=== PATIENT | female | born 2000 | race Caucasian/White ===

== ENCOUNTER 2021-09-15 22:59 | Emergency (ER) | payer OTHER ==
[2021-09-15 23:26] LABS: BASOPHILS # (AUTO) 0.1 10^3/uL (0.0-0.1); BASOPHILS % (AUTO) 0.7 %; EOSINOPHILS # (AUTO) 0.2 10^3/uL (0.0-0.7); EOSINOPHILS % (AUTO) 1.8 %; HGB - HEMOGLOBIN 12.5 g/dL (12.0-16.0); LYMPHOCYTES # (AUTO) 2.2 10^3/uL (1.5-3.5); LYMPHOCYTES % (AUTO) 22.4 %; MEAN CORPUSCULAR HEMOGLOBIN 31.9 pg (27.0-31.0); MEAN CORPUSCULAR HGB CONC 33.8 g/dL (32.0-36.0); MEAN CORPUSCULAR VOLUME 94.4 fL (81.0-99.0); MEAN PLATELET VOLUME 11.2 fL (7.9-10.8); MONOCYTES % (AUTO) 9.6 %; NEUTROPHILS # (AUTO) 6.5 10^3/uL (1.5-6.6); NEUTROPHILS % (AUTO) 65.2 %; PLT - PLATELET COUNT 217 10^3/uL (130-450); RED BLOOD COUNT 3.92 10^6/uL (4.20-5.40); RED CELL DISTRIBUTION WIDTH 12.3 % (12.0-15.0)
[2021-09-15 23:29] LABS: BILIRUBIN,URINE NEGATIVE (NEGATIVE); GLUCOSE, URINE (UA) NEGATIVE (NEGATIVE); KETONES,URINE (UA) NEGATIVE (NEGATIVE); LEUKOCYTE ESTERASE, URINE NEGATIVE (NEGATIVE); NITRITE,URINE NEGATIVE (NEGATIVE); OCCULT BLOOD,URINE NEGATIVE (NEGATIVE); PROTEIN,URINE NEGATIVE (NEGATIVE); UROBILINOGEN,URINE 0.2 (NORMAL) E.U./dL (NORMAL)
[2021-09-15 23:32] LABS: CLARITY,URINE CLEAR (CLEAR); HCG UR QUAL NEGATIVE
[2021-09-15 23:45] LABS: ALBUMIN 4.3 g/dL (3.2-5.5); ALBUMIN/GLOBULIN RATIO 1.6 (1.0-2.2); BILIRUBIN,TOTAL 0.5 mg/dL (0.2-1.0); CALCIUM 9.5 mg/dL (8.5-10.3); CREATININE 0.8 mg/dL (0.4-1.0); POTASSIUM 3.9 mmol/L (3.5-5.0)
--- NOTE | 2021-09-15 23:47 | ED Physician Documentation ---
PD HPI ABD PAIN - Stated complaint Stated Complaint: UPPER ADMIN PAIN/SORE THROAT - Chief complaint Chief Complaint: Abd Pain - History obtained from History obtained from: Patient - History of Present Illness Timing - onset: How many days ago (4) Timing - details: Abrupt onset, Constant, Waxing and waning Pain level now: 10 Quality: Cramping Location: RUQ, Epigastric Improved by: Laying still Worsened by: Palpation Associated symptoms: Nausea, Vomiting, Diarrhea. No: Fever Similar symptoms before: Diagnosis (pancreatitis) Recently seen: Not recently seen - Additional information Additional information: patients stated chief complaint is pancreatic flare up (per patient). She says she has h/o episodes of pancreatitis over past 5 years . she c/o LUQ and epigastric pain x 4 days, cramping and with diarrhea. 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 She does not live on [facility]. She says she had only a few beers during the trip to [place]. Regarding her pancreatitis, she says no cause had been found and that she was advised to have a test performed which, by her description of what it entails, sounds likely to be MRCP. She says this was advised a few years ago but she has not yet had it performed. Review of Systems Constitutional: reports: Reviewed and negative Cardiac: reports: Reviewed and negative Respiratory: reports: Reviewed and negative GI: reports: Abdominal Pain, Nausea, Vomiting, Diarrhea. 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, Other : Kidney stones Other Past Medical History: PCOS - Past Surgical History Past Surgical History: Yes General: Appendectomy HEENT: Tonsil/Adenoidectomy, Other - Present Medications Home Medications: Ambulatory Orders Medication Instructions Recorded Confirmed HYDROcod/ACETAM 5/325 [[place] 5/325] 1 ea PO Q6H PRN #15 tablet 09/16/21 Pantoprazole [Protonix] 40 mg PO DAILY 30 Days #30 tablet 09/16/21 Promethazine [Phenergan] 25 mg PO Q6H PRN #20 tab 09/16/21 - Allergies Allergies/Adverse Reactions: Allergies Allergy/AdvReac Type Severity Reaction Status Date / Time diphenhydramine AdvReac Rash Verified 09/15/21 23:11 [From Benadryl] - Social History Does the pt smoke?: No Smoking Status: Never smoker Does the pt drink ETOH?: No Substance Use and Type: Marijuana - Immunizations Immunizations are current?: Yes PD ED PE NORMAL - Vitals Vital signs reviewed: Yes - General General: Alert and oriented X 3, Well developed/nourished, Other (appears anxious and uncomfortable due to pain) - HEENT HEENT: Moist mucous membranes - Neck Neck: Supple, no meningeal sign - Cardiac Cardiac: RRR, No murmur - Respiratory Respiratory: No respiratory distress, Clear bilaterally - Abdomen Abdomen: Soft, Non distended, Other (TTP across upper abdomen, epigastrium=LUQ<RUQ) - Back Back: No CVA TTP - Extremities Extremities: No edema PD ED PE EXPANDED - Psych Psych: Tearful, Anxious Results - Vitals Vitals: Vital Signs - 24 hr 09/15/21 09/15/21 09/16/21 23:11 23:16 01:16 Temperature 36.5 C 36.5 C Heart Rate 66 66 62 Respiratory 16 16 15 Rate Blood Pressure 115/80 115/80 111/80 O2 Saturation 100 100 98 09/16/21 09/16/21 09/16/21 01:42 03:00 05:00 Temperature Heart Rate 61 70 Respiratory 17 19 15 Rate Blood Pressure 108/79 105/70 O2 Saturation 99 95 09/16/21 09/16/21 09/16/21 07:47 08:53 09:41 Temperature 37.0 C Heart Rate 108 H 62 78 Respiratory 18 18 18 Rate Blood Pressure 122/92 H 122/80 O2 Saturation 96 100 100 Oxygen O2 Source Room air - Labs Labs: Laboratory Tests 09/15/21 09/15/21 09/15/21 23:00 23:00 23:08 WBC 10.0 RBC 3.92 L Hgb 12.5 Hct 37.0 MCV 94.4 MCH 31.9 H MCHC 33.8 RDW 12.3 Plt Count 217 MPV 11.2 H Neut # (Auto) 6.5 Lymph # (Auto) 2.2 [place] # (Auto) 1.0 Eos # (Auto) 0.2 Baso # (Auto) 0.1 Absolute Nucleated RBC 0.00 Nucleated RBC % 0.0 Sodium 137 Potassium 3.9 Chloride 103 Carbon Dioxide 24 Anion Gap 10.0 BUN 10 Creatinine 0.8 Estimated GFR (MDRD) 91 Glucose 97 Calcium 9.5 Total Bilirubin 0.5 AST 15 ALT 10 Alkaline Phosphatase 58 Total Protein 7.0 Albumin 4.3 Globulin 2.7 Albumin/Globulin Ratio 1.6 Lipase 43 Urine Color YELLOW Urine Clarity CLEAR Urine pH 7.0 Ur Specific [place] 1.020 Urine Protein NEGATIVE Urine Glucose (UA) NEGATIVE Urine Ketones NEGATIVE Urine Occult Blood NEGATIVE Urine Nitrite NEGATIVE Urine Bilirubin NEGATIVE Urine Urobilinogen 0.2 (NORMAL) Ur Leukocyte Esterase NEGATIVE Ur Microscopic Review NOT INDICATED Urine Culture Comments NOT INDICATED Urine HCG, Qual NEGATIVE - Rads (name of study) CT A/P with IV contrast Radiology: Prelim report reviewed, See rad report PD MEDICAL DECISION MAKING - ED course Complexity details: reviewed results, re-evaluated patient, considered differential, d/w patient ED course: Initial plan that was d/w patient was blood tests, UA (with urine HCG), and IV fluids, zofran, and dilaudid. I performed RUQ US at bedside and there was negative sonographic murphys sign with nondistended gallbladder, no ductal dilatation, and no visualized gallbladder calculi. She had transient and partial relief with the initial medications, but pain returned and was more severe than when she had first came in. She was clinging to rail of stretcher at times, and also sitting on all fours on stretcher at other times. She is given a second dose of zofran and dilaudid. I reviewed the test results with her and they are all unremarkable, including normal WBC, normal LFTs, and normal lipase. Given the ongoing severe symptoms, I recommended CT A/P. She is agreeable to this, but also says she had CT a few months ago at another hospital. In further discussion, she says she was at [facility] ED for kidney stone. I asked if we have her permission to obtain these records and she is agreeable to this. CT A/P ordered in the meantime. 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 I was able to get the ED records from an ED visit April 2021 to one of the [facility] facilities. Similar chief complaint and w/u with normal UA, normal lipase, marijuana on UDS, and mild left-sided renal pelviectasis in comparison to right kidney but no evidence of renal/ureteral calculus. The suspicion was a recently passed kidney stone vs. non-visualized calculus still present. She received multiple medications including total of 350 micrograms fentanyl, as well as zofran and lorazepam, along with IV fluids. Tonights CT A/P is unremarkable; hepatomegaly is noted as well as possible left ovarian corpus luteum cyst. Due to recurrent symptoms, other medications given tonight included maalox/viscous lidocaine, dicyclomine, toradol IV, phenergan IV, and lorazepam IV. She received a total of 4mg IV dilaudid. Towards the end of my shift, she was asleep. When I went to reassess her twice in the 5:30-6:30 hour, I was unable to get her to wake up enough to participate in discussion (such as reassessment, discussion regarding discharge planning). She would roll onto her side away from me and when I would go to the other side of the bed and try again, she would wake up just enough to roll onto her side away from me again. I asked her what pharmacy she uses so that I can send prescriptions for antinausea and pain medications. Her answer was mumbling and incomprehensible. As my shift was ended and she needs to be more awake for accurate reassessment and discussion of discharge planning, follow up recommendations, and return precautions, care of patient turned over to Dr. Hugo. The cause of her symptoms is not apparent on tonights testing. The corpus luteum cyst is significantly removed from the location of her pain and tenderness and she has no anterior pelvic or even lower abdominal tenderness. The hepatomegaly is also coincident; would not explain the discomfort she is having. PUD and/or gastritis remains on the differential. Earlier in the ED stay, I did mention to her that she might need to have upper endoscopy if her symptoms persist or recur. Departure - Departure Disposition: 01 Home, Self Care Clinical Impression: Epigastric pain Nausea and vomiting Qualifiers: Vomiting type: unspecified Qualified Code(s): R11.2 - Nausea with vomiting, unspecified Gastritis Qualifiers: Gastritis type: unspecified gastritis Chronicity: unspecified Gastritis bleeding: without bleeding Qualified Code(s): K29.70 - Gastritis, unspecified, without bleeding Condition: Stable Instructions: ED Epigastric Pain [facility]O Prescriptions: HYDROcod/ACETAM 5/325 [[place] 5/325] 1 ea PO Q6H PRN #15 tablet PRN Reason: Pain Promethazine [Phenergan] 25 mg PO Q6H PRN #20 tab PRN Reason: Nausea / Vomiting Pantoprazole [Protonix] 40 mg PO DAILY 30 Days #30 tablet Comments: Its not certain the cause of your upper abdominal pain. On today's visit, your lipase is normal and your CT scan does not show any obvious abnormalities and in particular shows a normal pancreas without any inflammation. For the current episode, I would presume more likely gastritis or an irritation of the stomach and treat it as such with some acid reducing medicine over the next month or so given that you have had ongoing pain as well. Additionally I would suggest promethazine every 6 hours if needed for nausea. Use Tylenol every 4-6 hours if needed for pain or occasionally hydrocodone if needed for worse pain in the short-term. Avoid irritants of the stomach such as caffeine, alcohol, spicy foods. Certainly establish a new primary care and referral to gastroenterology when you have moved to the [facility]. I transmitted your prescriptions to [facility] pharmacy in [place]. My narcotic instructions I am prescribing a short course of narcotic pain medication for you. These are potentially dangerous and addictive medications that should be used carefully. These medications may constipate you. Take an [id number] stool softener such as docusate twice daily with plenty of water while taking these medications. If you go 24 hours without a bowel movement, take [id number] MiraLAX, per package instructions. Do not drink or drive while taking these medications. If you received narcotic or sedating medications while in the emergency depart ment do not drive for 24 hours. Store this medication in a safe, secure place and out of reach of children. It is a violation of federal law to give or sell this medication to another person or to use in a manner other than prescribed. The ED will not refill narcotic prescriptions, including prescriptions lost or stolen. You can dispose of unwanted medications at the [facility]'s office or at several pharmacies such as [facility]. Discharge Date/Time: 09/16/21 09:44
[2021-09-16] MEDS ORDERED: SODIUM CHLORIDE 0.9% 1,000 ML IV STA ×2 (00:08→03:55)
[2021-09-16] MEDS ORDERED: HYDROmorphone 1 MG/ML CARPUJECT IVP STA ×4 (00:08→02:57)
[2021-09-16] MEDS ORDERED: ONDANSETRON 4 MG/2 ML VIAL IVP STA ×3 (00:08→09:09)
[2021-09-16] MEDS ORDERED: MAG HYDROX/AL HYDROX/SIMETH 30 ML UDC PO STA (01:02)
[2021-09-16] MEDS ORDERED: LIDOCAINE VISCOUS 2% 15 ML UDC MM STA (01:03)
[2021-09-16] MEDS ORDERED: DICYCLOMINE 10 MG CAPSULE PO STA (01:04)
[2021-09-16] MEDS ORDERED: IOVERSOL 320 100 ML VIAL IVP ONE ×2 (02:10→02:26)
[2021-09-16] MEDS ORDERED: KETOROLAC 30 MG/ML VIAL IVP STA (02:57)
[2021-09-16] MEDS ORDERED: PROMETHAZINE INJ 25 MG in SODIUM CHLORIDE 0.9% 50 ML IV STA (03:55)
[2021-09-16] MEDS ORDERED: LORazepam 2 MG/ML VIAL IVP STA (03:55)
[2021-09-16] MEDS ORDERED: PROMETHAZINE 25 MG/1 ML VIAL ONE (04:09)
[2021-09-16] MEDS ORDERED: KETAMINE 25 MG in SODIUM CHLORIDE 0.9% 100ML 100 ML IV STA (08:19)
[2021-09-16] MEDS ORDERED: FAMOTIDINE 20 MG/2 ML VIAL IVP STA (08:20)
--- NOTE | 2021-09-16 08:30 | CT Report ---
PROCEDURE: Abdomen/Pelvis W INDICATIONS: abd. pain CONTRAST: IV CONTRAST: Optiray 320 ml: 100 PO CONTRAST: *NO PO CONTRAST TECHNIQUE: After the administration of the contrast, 5 mm thick sections acquired from the diaphragms to the sym physis. 5 mm thick coronal and sagittal reformats were acquired. For radiation dose reduction, the following was used: automated exposure control, adjustment of mA and/or kV according to patient size . COMPARISON: None. FINDINGS: Image quality: Excellent. ABDOMEN: Lung bases: Lung bases are clear. Heart size is normal. Solid organs: Liver is enlarged, no discrete hepatic lesion. Spleen is normal in size and enhancement . Gallbladder is within normal limits. Biliary system is non dilated. Pancreas enhances normally. No adrenal nodules. Kidneys demonstrate normal size and enhancement, without hydronephrosis. Peritoneum and bowel: Bowel loops demonstrate normal wall thickness and caliber. No free fluid or a ir. Appendix is surgically absent. Nodes and vessels: No retroperitoneal or mesenteric adenopathy by size criteria. Aorta and inferior vena cava are normal in size. Miscellaneous: No ventral hernias. PELVIS: Genitourinary: Bladder wall thickness is normal. Miscellaneous: No inguinal hernias or adenopathy. 1.4 cm cystic nodule with crenulated enhancing wa ll is noted in left adnexa likely represent a corpus luteal cyst. Uterus and right ovary show no rosa s abnormality. Bones: No suspicious bony lesions. No vertebral body compression fractures. IMPRESSION: 1. No bowel obstruction or abnormal bowel wall thickening. No free fluid of free air. 2. Suggestion of a corpus luteal cyst in left ovary. If indicated, ultrasound of pelvis can be done f or further evaluation. 3. Hepatomegaly, no discrete hepatic lesion. 4. No renal stone or hydronephrosis. No discrepancies from preliminary reading. Reviewed by: Luis Adamson MD on 09/16/2021 8:28 AM PDT Approved by: Luis Adamson MD on 09/16/2021 8:28 AM PDT Station ID: [id number]
--- NOTE | 2021-09-16 08:42 | ED Physician Documentation ---
ED Addendum - Addendum Addendum: Recheck on change of shift, the patient is awake and conversant. She is distraught and tearful over the despair of having recurrent chronic abdominal pain. Previously diagnosed pancreatitis but her current lipase and CT scan did not show pancreatic inflammation. Alternatives would be gastritis or gastric muscle spasming such as cannabis induced. She declines the idea of alternative diagnoses rather than the pancreatitis. She states her pain is worsening again. Denies nausea at this time. She had had doses of opiates with moderate improvement though did eventually fall asleep for a couple of hours. Alternatively we can try a mild pain medication dosing of ketamine at 0.5 mg/kg over 40 minutes and see if that has a better effect for now. Subsequently can discharge with antiemetics as well as H2 blockers and short course of pain medication. She does not have an ANNA form. 09/16/21 08:40
[2021-09-16 09:44] VITALS: BP 122/80
== END 2021-09-16 09:44 | disposition home or self-care (01) ==
LOC: ED 22:59
DX: K29.70 Gastritis, unspecified, without bleeding (principal); N83.12 Corpus luteum cyst of left ovary
CPT/HCPCS: 36415; 74177; 80053; 81003; 81025; 83690; 85025; 96365; 96375; 96376; 99284; 99285; A9270; J1170; J2060; J7040; Q9967; 81001; 87086